=== PATIENT | female | born 1960 | race Caucasian/White ===

== ENCOUNTER 2018-04-21 08:30 | Inpatient (IN) | payer OTHER ==
[~2018-04-21] VITALS: Ht 165.1 cm; Wt 78.0 kg
[2018-04-21 08:34] VITALS: BP_SYST 114
[2018-04-21] MEDS ORDERED: NACL 0.9% 1,000 ML IV SCH (08:38)
[2018-04-21] MEDS ORDERED: ONDANSETRON HCL 4 MG/2 ML VIAL IVP ONE ×2 (08:45→09:45)
[2018-04-21 09:27] LABS: BASOPHILS % (AUTO) 0.3 % (0.0-2.0); EOSINOPHILS # (AUTO) 0.1 K/uL (0.0-0.4); EOSINOPHILS % (AUTO) 1.1 % (0.0-4.0); HEMATOCRIT 25.4 % (36-48); HEMOGLOBIN 8.2 g/dL (12.0-16.0); LYMPHOCYTES # (AUTO) 1.9 K/uL (1.0-5.5); LYMPHOCYTES % (AUTO) 23.2 % (20.5-51.5); MEAN CORPUSCULAR HEMOGLOBIN 29 pg (27-31); MEAN CORPUSCULAR HGB CONC 32 % (32-36); MEAN CORPUSCULAR VOLUME 91 fL (79.0-98.0); MONOCYTES # (AUTO) 0.4 K/uL (0.0-1.0); MONOCYTES % (AUTO) 4.9 % (1.7-9.3); NEUTROPHILS % (AUTO) 70.5 % (40.0-70.0); PLATELET COUNT (AUTO) 284 K/uL (130-430); RED BLOOD CELL COUNT(AUTO) 2.78 MIL/uL (4.2-6.2); RED CELL DISTRIBUTION WIDTH 12.3 % (9.0-15.0); WHITE BLOOD COUNT (AUTO) 8.4 K/uL (4.8-10.8)
[2018-04-21 09:34] LABS: CALCIUM 7.8 mg/dL (8.4-11.0); CREATININE 0.76 mg/dL (0.55-1.30); POTASSIUM 4.5 mmol/L (3.5-5.1)
[2018-04-21] MEDS ORDERED: HYDR25TA4 PO (09:35)
[2018-04-21] MEDS ORDERED: ASA81 PO (09:35)
[2018-04-21] MEDS ORDERED: BUPR-120 PO (09:35)
[2018-04-21] MEDS ORDERED: VENL75CA PO (09:35)
[2018-04-21] MEDS ORDERED: LORA-259 PO (09:35)
[2018-04-21] MEDS ORDERED: ACET-73 PO (09:35)
[2018-04-21] MEDS ORDERED: CALC-823 PO (09:35)
[2018-04-21] MEDS ORDERED: VITA1CAP PO (09:35)
[2018-04-21] MEDS ORDERED: ALBU2.5V7 INH (09:35)
[2018-04-21] MEDS ORDERED: BACL10TA PO (09:35)
[2018-04-21 09:39] LABS: ALBUMIN 2.4 g/dL (3.4-4.8); PROTHROMBIN TIME 10.4 SECS (9.5-12.5); TOTAL BILIRUBIN 0.3 mg/dL (0.0-1.0)
[2018-04-21] MEDS ORDERED: FAMOTIDINE PF 20 MG/2 ML VIAL IVP ONE (09:45)
[2018-04-21] MEDS ORDERED: MORPHINE 2 MG/ML INJ. SYRINGE IVP ONE (09:45)
[2018-04-21] MEDS ORDERED: MORPHINE 4 MG/ML INJ. SYRINGE ONE (10:05)
[2018-04-21] MEDS ORDERED: D5NS 1,000 ML IV ONE (10:45)
[2018-04-21 11:19] VITALS: BP_SYST 106
[2018-04-21 12:00] VITALS: BP_SYST 106
[2018-04-21] MEDS ORDERED: ALBUTEROL SULFATE 0.083% 2.5 MG/3 ML VIAL.NEB INH PRN (12:00)
[2018-04-21 12:27] LABS: HEMATOCRIT 22.2 % (36-48); HEMOGLOBIN 7.2 g/dL (12.0-16.0)
[2018-04-21] MEDS ORDERED: PANTOPRAZOLE SODIUM 80 MG in NS 100 ML IV ONE (12:30)
[2018-04-21] MEDS: CALCIUM CARBONATE/VITAMIN D3 1 TAB TABLET PO SCH ×2 (13:00→21:06)
[2018-04-21] MEDS: PANTOPRAZOLE SODIUM 40 MG in NS 50 ML IV SCH ×3 (14:41→23:30)
[2018-04-21 15:00] VITALS: BP_SYST 106
[2018-04-21] MEDS ORDERED: BISACODYL 5 MG TABLET.DR (DULCOLAX) PO ONE (15:00)
[2018-04-21] MEDS ORDERED: GOLYTELY / COLYTE SOLUTION 4 LITERS PO ONE (17:00)
[2018-04-21 18:40] LABS: HEMOGLOBIN 7.3 g/dL (12.0-16.0)
[2018-04-21 18:42] LABS: HEMATOCRIT 21.6 % (36-48)
[2018-04-21 20:00] VITALS: BP_SYST 107
[2018-04-21] MEDS ORDERED: PANTOPRAZOLE SODIUM 40 MG/VIAL (PROTONIX) IVP SCH (21:00)
[2018-04-21] MEDS: LORazepam 1 MG TABLET PO SCH (21:00)
[2018-04-21] MEDS: Effexor 37.5 MG TAB PO SCH (21:06)
[2018-04-21] MEDS: BACLOFEN 10 MG TABLET PO SCH (21:06)
[2018-04-21] MEDS ORDERED: MORPHINE 4 MG/ML INJ. SYRINGE IVP SCH (23:30)
[2018-04-21] MEDS: NACL 0.9% 1,000 ML IV SCH (23:42)
[2018-04-22] VITALS (9 sets, daily range): BP systolic 126–155
[2018-04-22 01:25] LABS: HEMATOCRIT 23.2 % (36-48)
[2018-04-22 01:34] LABS: HEMOGLOBIN 7.9 g/dL (12.0-16.0)
[2018-04-22] MEDS: PANTOPRAZOLE SODIUM 40 MG in NS 50 ML IV SCH ×3 (03:33→20:46)
[2018-04-22] MEDS ORDERED: fentaNYL CITRATE/PF 100 MCG/2 ML AMP ONE (06:43)
[2018-04-22] MEDS: MEPERIDINE HCL/PF 100 MG/ML AMP ONE ×3 (07:04→07:44)
[2018-04-22] MEDS: MIDAZOLAM HCL 5 MG/5 ML VIAL ONE ×4 (07:04→07:39)
[2018-04-22 07:07] LABS: HEMATOCRIT 22.9 % (36-48); HEMOGLOBIN 7.6 g/dL (12.0-16.0)
[2018-04-22] MEDS ORDERED: SIMETHICONE 40 MG/0.6 ML ML ONE (07:20)
[2018-04-22] MEDS: LORazepam 1 MG TABLET PO SCH (09:00)
[2018-04-22] MEDS: Effexor 37.5 MG TAB PO SCH ×2 (09:00→20:45)
[2018-04-22] MEDS ORDERED: EPINEPHrine JECT 1 MG/10 ML SYR IVP ONE (09:18)
[2018-04-22] MEDS: CALCIUM CARBONATE/VITAMIN D3 1 TAB TABLET PO SCH ×4 (09:28→20:45)
[2018-04-22] MEDS: buPROPion HCL 150 MG XL TAB PO SCH (09:28)
[2018-04-22] MEDS: BACLOFEN 10 MG TABLET PO SCH ×2 (09:28→20:45)
[2018-04-22] MEDS: HYDROCHLOROTHIAZIDE 25 MG TABLET (HCTZ) PO SCH (09:29)
[2018-04-22] MEDS ORDERED: HYDROcodone/ACETAMIN 5-325 MG TAB (NORCO/ VICODIN) PO PRN (11:15)
[2018-04-22] MEDS: NACL 0.9% 1,000 ML IV SCH (15:37)
[2018-04-22 16:41] LABS: BASOPHILS % (AUTO) 0.3 % (0.0-2.0); EOSINOPHILS # (AUTO) 0.4 K/uL (0.0-0.4); EOSINOPHILS % (AUTO) 3.6 % (0.0-4.0); HEMOGLOBIN 8.8 g/dL (12.0-16.0); LYMPHOCYTES # (AUTO) 2.2 K/uL (1.0-5.5); LYMPHOCYTES % (AUTO) 21.3 % (20.5-51.5); MEAN CORPUSCULAR HEMOGLOBIN 30 pg (27-31); MEAN CORPUSCULAR HGB CONC 34 % (32-36); MEAN CORPUSCULAR VOLUME 88 fL (79.0-98.0); MONOCYTES # (AUTO) 0.8 K/uL (0.0-1.0); MONOCYTES % (AUTO) 7.6 % (1.7-9.3); NEUTROPHILS # (AUTO) 6.8 K/uL (1.8-7.7); NEUTROPHILS % (AUTO) 67.2 % (40.0-70.0); PLATELET COUNT (AUTO) 187 K/uL (130-430); RED BLOOD CELL COUNT(AUTO) 2.95 MIL/uL (4.2-6.2); RED CELL DISTRIBUTION WIDTH 14.7 % (9.0-15.0); WHITE BLOOD COUNT (AUTO) 10.2 K/uL (4.8-10.8)
[2018-04-22] MEDS ORDERED: clonazePAM 0.5 MG TABLET PO SCH ×2 (18:30→21:00)
[2018-04-22] MEDS ORDERED: clonazePAM 0.5 MG TABLET PO ONE (18:30)
[2018-04-22 22:34] LABS: HEMATOCRIT 26.3 % (36-48); HEMOGLOBIN 8.8 g/dL (12.0-16.0)
[2018-04-23] MEDS: NACL 0.9% 1,000 ML IV SCH ×2 (01:55→15:15)
[2018-04-23] MEDS: PANTOPRAZOLE SODIUM 40 MG in NS 50 ML IV SCH ×2 (02:05→06:47)
[2018-04-23 07:38] LABS: HEMATOCRIT 27.3 % (36-48)
[2018-04-23 07:45] VITALS: BP_SYST 142
[2018-04-23] MEDS: HYDROCHLOROTHIAZIDE 25 MG TABLET (HCTZ) PO SCH (08:35)
[2018-04-23] MEDS: buPROPion HCL 150 MG XL TAB PO SCH (08:35)
[2018-04-23] MEDS: clonazePAM 0.5 MG TABLET PO SCH ×2 (08:35→20:49)
[2018-04-23] MEDS: BACLOFEN 10 MG TABLET PO SCH ×2 (08:35→20:48)
[2018-04-23] MEDS: CALCIUM CARBONATE/VITAMIN D3 1 TAB TABLET PO SCH ×4 (08:35→20:49)
[2018-04-23 11:32] VITALS: BP_SYST 149
[2018-04-23 12:23] LABS: HEMATOCRIT 27.5 % (36-48)
[2018-04-23] MEDS: PANTOPRAZOLE SODIUM 40 MG/VIAL (PROTONIX) IVP SCH ×2 (15:11→20:48)
[2018-04-23] MEDS ORDERED: PRO40 PO (18:01)
[2018-04-23 18:17] VITALS: BP_SYST 136
[2018-04-23 18:27] LABS: HEMATOCRIT 27.4 % (36-48); HEMOGLOBIN 9.3 g/dL (12.0-16.0)
[2018-04-23] MEDS: ACETAMINOPHEN 325 MG TABLET PO PRN (18:43)
[2018-04-23 19:00] VITALS: BP_SYST 133
[2018-04-23 20:00] VITALS: BP_SYST 133
[2018-04-23] MEDS: Effexor 37.5 MG TAB PO SCH (20:48)
[2018-04-24] LABS: BILIRUBIN,URINE NEGATIVE (NEGATIVE); BLOOD, URINE NEGATIVE (NEGATIVE); CLARITY/URINE CLEAR (CLEAR); COLOR,URINE YELLOW (YELLOW); GLUCOSE,URINE NEGATIVE (NEGATIVE); KETONES,URINE NEGATIVE (NEGATIVE); LEUKOCYTE ESTERASE ,URINE NEGATIVE (NEGATIVE); NITRITE, URINE NEGATIVE (NEGATIVE); PH,URINE 6.5 (5.0-8.0); PROTEIN URINE NEGATIVE (NEGATIVE); UROBILINOGEN,URINE 0.2 (0.2-1.0)
[2018-04-24 01:04] VITALS: BP_SYST 138
[2018-04-24] MEDS: ACETAMINOPHEN 325 MG TABLET PO PRN ×2 (02:10→09:30)
[2018-04-24] MEDS: NACL 0.9% 1,000 ML IV SCH (04:35)
[2018-04-24 08:44] VITALS: BP_SYST 127
[2018-04-24] MEDS: CALCIUM CARBONATE/VITAMIN D3 1 TAB TABLET PO SCH (09:30)
[2018-04-24] MEDS: BACLOFEN 10 MG TABLET PO SCH (09:30)
[2018-04-24] MEDS: PANTOPRAZOLE SODIUM 40 MG/VIAL (PROTONIX) IVP SCH (09:30)
[2018-04-24] MEDS: buPROPion HCL 150 MG XL TAB PO SCH (09:30)
[2018-04-24] MEDS: HYDROCHLOROTHIAZIDE 25 MG TABLET (HCTZ) PO SCH (09:31)
[2018-04-24] MEDS: clonazePAM 0.5 MG TABLET PO SCH (09:32)
[2018-04-24 12:02] VITALS: BP_SYST 128
== END 2018-04-24 12:17 | disposition home or self-care (01) | DRG 377 ==
LOC: SED 08:30 → STU 10:41 → SMU 04-24 08:12
PROVIDERS: ADMIT Internal Medicine Hospice and Palliative Medicine; ATTEND Internal Medicine Hospice and Palliative Medicine
PROC: 30233N1 Transfusion of Nonautologous Red Blood Cells into Peripheral Vein, Percutaneous Approach (ICD-10-PCS; 2018-04-21)
PROC: 0DBN8ZZ Excision of Sigmoid Colon, Via Natural or Artificial Opening Endoscopic (ICD-10-PCS; 2018-04-22)
PROC: 0DBH8ZZ Excision of Cecum, Via Natural or Artificial Opening Endoscopic (ICD-10-PCS; 2018-04-22)
PROC: 0D558ZZ Destruction of Esophagus, Via Natural or Artificial Opening Endoscopic (ICD-10-PCS; 2018-04-22)
PROC: 0DBK8ZZ Excision of Ascending Colon, Via Natural or Artificial Opening Endoscopic (ICD-10-PCS; principal; 2018-04-22 07:30)
PROC: 0DB98ZX Excision of Duodenum, Via Natural or Artificial Opening Endoscopic, Diagnostic (ICD-10-PCS; 2018-04-22 07:30)
DX: K28.4 Chronic or unspecified gastrojejunal ulcer with hemorrhage (principal); E43 Unspecified severe protein-calorie malnutrition; K29.70 Gastritis, unspecified, without bleeding; K92.1 Melena; K92.0 Hematemesis; K64.8 Other hemorrhoids; D64.9 Anemia, unspecified; F41.9 Anxiety disorder, unspecified; G89.29 Other chronic pain; I10 Essential (primary) hypertension; K20.9 Esophagitis, unspecified; K64.4 Residual hemorrhoidal skin tags; D12.0 Benign neoplasm of cecum; K63.5 Polyp of colon; E66.9 Obesity, unspecified; Z79.82 Long term (current) use of aspirin; Z90.710 Acquired absence of both cervix and uterus; Z98.1 Arthrodesis status; Z98.84 Bariatric surgery status; Z68.28 Body mass index [BMI] 28.0-28.9, adult; Z90.49 Acquired absence of other specified parts of digestive tract; Z91.040 Latex allergy status; Z79.899 Other long term (current) drug therapy
CPT/HCPCS: 36415; 43236; 45385; 70450-TC; 71045; 72072-TC; 72100-TC; 72170-TC; 80053; 81003; 85018-TC; 85025; 85610-TC; 85730-TC; 86886; 86900; 86901; 86920; 88305; 93005; 94660; 96361; 96374; 96375; 96376; 97116-GP; 97530-GP; 99285; C9113; G0378; J0171; J2175; J2250; J2270; J2405; J3010; J7030; J7042; P9021